=== PATIENT | male | born 1995 | race Caucasian/White ===

== ENCOUNTER 2019-07-08 18:21 | Inpatient (IN) | payer BC ==
[~2019-07-08] VITALS: Ht 170.2 cm; Wt 80.3 kg
[2019-07-08 19:58] LABS: PLATELET COUNT 275 x10^3mcL (130-400); RED CELL DISTRIBUTION WIDTH 13.3 % (11.5-14.5)
[2019-07-08 20:00] LABS: BASOPHIL % 0 % (0-2)
[2019-07-08 20:24] LABS: GFR1 > 60 mL/min
[2019-07-08 21:05] LABS: ALBUMIN 4.7 g/dL (3.4-5.0); ALKALINE PHOSPHATASE 108 U/L (46-116); ALT/SGPT 36 U/L (16-63); AST/SGOT 31 U/L (15-37); CALCIUM 9.4 mg/dL (8.5-10.1); CARBON DIOXIDE 26.4 mmol/L (21-32); CHLORIDE SERUM 101 mmol/L (98-107); CREATININE SERUM 0.9 mg/dL (0.7-1.3); GLUCOSE SERUM 131 mg/dL (74-106); LIPASE 61 IU/L (73-393); POTASSIUM SERUM 4.3 mmol/L (3.5-5.1); SODIUM SERUM 139 mmol/L (136-145)
[2019-07-08 21:11] LABS: TOTAL PROTEIN, SERUM 8.9 g/dL (6.4-8.2)
[2019-07-09 00:44] VITALS: BP 126/73
[2019-07-09 04:22] VITALS: BP 120/67
[2019-07-09 06:31] LABS: BASOPHIL % 0.3 % (0-2); PLATELET COUNT 218 x10^3mcL (130-400); RED CELL DISTRIBUTION WIDTH 13.3 % (11.5-14.5)
[2019-07-09 06:58] LABS: CALCIUM 8.1 mg/dL (8.5-10.1); CARBON DIOXIDE 27.9 mmol/L (21-32); CHLORIDE SERUM 105 mmol/L (98-107); GFR1 > 60 mL/min; GLUCOSE SERUM 79 mg/dL (74-106); MAGNESIUM 1.8 mg/dL (1.8-2.4); PHOSPHOROUS 4.1 mg/dL (2.5-4.9); POTASSIUM SERUM 3.4 mmol/L (3.5-5.1); SODIUM SERUM 142 mmol/L (136-145)
[2019-07-09 09:23] VITALS: BP 110/48
[2019-07-09 16:07] VITALS: BP 139/77
[2019-07-09] MEDS ORDERED: CIPROFLOXACIN500 MG PO (17:01)
[2019-07-09] MEDS ORDERED: IBU600 M2 PO (17:02)
[2019-07-09 19:15] LABS: microscopic required? NO
[2019-07-09 19:30] VITALS: BP 139/77
[2019-07-09 19:57] LABS: urine erythrocyte NEGATIVE (NEGATIVE)
[2019-07-09 20:07] LABS: AMPHETAMINE QUAL UR NONE DETECTED (See below)
[2019-07-09 20:44] VITALS: BP 144/77
== END 2019-07-09 21:00 | disposition home or self-care (01) | DRG 343 ==
LOC: ED 18:21 → MU 21:53
PROVIDERS: Family Medicine Addiction Medicine; ADMIT Internal Medicine
PROC: 0DTJ4ZZ Resection of Appendix, Percutaneous Endoscopic Approach (ICD-10-PCS; principal; 2019-07-09 10:00)
DX: K35.80 Unspecified acute appendicitis (principal); F12.90 Cannabis use, unspecified, uncomplicated; F17.210 Nicotine dependence, cigarettes, uncomplicated; Z88.0 Allergy status to penicillin; Z82.3 Family history of stroke; Z80.9 Family history of malignant neoplasm, unspecified; Z83.3 Family history of diabetes mellitus
CPT/HCPCS: G0378; J0295; J0744; J1170; J1885; J2001; J2405; J3010; J3490; J7030; Q0092